=== PATIENT | male | born 1945 | race Caucasian/White ===

== ENCOUNTER 2016-07-08 08:34 | Emergency (ER) | payer MEDICARE, MEDICAID ==
--- NOTE | 2016-07-08 08:55 | ED Physician Chart ---
Chief Complaint/HPI - Patient Information Date Seen:: 07/08/16 Time Seen:: 08:35 Chief Complaint:: rash History of Present Illness:: 71-year-old male from [facility] with acute, constant, moderate to severe, skin rash on the right flank/upper buttocks 3 weeks. Associated shingles outbreak started the rash. Concerned that there may be infection of the healing herpetic rash. Allergies:: Allergies Allergy/AdvReac Type Severity Reaction Status Date / Time No Known Allergies Allergy Verified 07/08/16 08:46 Historian:: Patient Review:: Nurse's Note Reviewed Review of Systems - Review of Systems Other: Complete system review otherwise unremarkable except as noted in history of present illness. Past Medical History - Past Medical History Past Medical History: HTN, Asthma/COPD Family History: None Social History: Smoker, No Alcohol, No Drug Use, Care Facility Surgical History: None Psychiatricy History: Schizophrenia Medication: Reviewed Family Medical History - Family Member Mother Ethnicity: Non- Living Status: Physical Exam - Physical Examination Other:: INITIAL VITAL SIGNS: Reviewed by me GENERAL: Alert and interactive. No acute distress HEAD: Head is normocephalic and atraumatic EYES: EOMI. PERRL. No scleral icterus. No conjunctival injection ENT: Moist mucous membranes. NECK: Supple. No masses. Full range of motion RESPIRATORY: No tachypnea. Clear breath sounds bilaterally. No wheezing, rales, or rhonchi CV: Regular rate and rhythm. No murmurs, rubs, or gallops ABDOMEN: Soft, non-distended, non-tender. No guarding. No rebound. No masses. EXTREMITIES: No deformity. No cyanosis. No edema. SKIN: Right flank area has healing and partially scabbed over herpetic zoster rash. There are some areas with slight open wound. Minimal surrounding erythema. NEUROLOGIC: Alert and oriented. Face is symmetric. Speech is normal. Moves all extremities equally. Motor and sensory distally intact. Labs/Radiology/EKG Results - Lab Results Results: Lab Results 07/08/16 07/08/16 07/08/16 Range/Units 09:00 09:00 09:00 WBC 6.7 (4.8-10.8) Th/cmm RBC 4.26 (3.80-5.80) Mil/cmm Hgb 14.7 (12.6-17.4) gm/dL Hct 42.9 (39.0-49.0) % MCV 100.8 H (80-99) fl MCH 34.5 H (27.0-31.0) pg MCHC Differential 34.3 (28.0-36.0) pg RDW 13.2 (11.5-20.0) % Plt Count 313 (150-400) Th/cmm MPV 6.3 fl Neutrophils % 68.8 (40.0-80.0) % Lymphocytes % 20.9 (20.0-50.0) % Monocytes % 8.4 (2.0-10.0) % Eosinophils % 0.3 (0.0-5.0) % Basophils % 1.6 (0.0-2.0) % PT 9.6 (9.5-11.5) SECONDS INR 0.92 (0.5-1.4) PTT (Actin FS) 29.0 (26.0-38.0) SECONDS Sodium 129 L (136-145) mEq/L Potassium 4.0 (3.5-5.1) mEq/L Chloride 99 (98-107) mEq/L Carbon Dioxide 29.8 (21.0-31.0) mEq/L Anion Gap 4.2 L (7.0-16.0) BUN 15 (7-25) mg/dL Creatinine 0.7 (0.7-1.3) mg/dL Est GFR ( Amer) TNP Est GFR (Non-Af Amer) TNP BUN/Creatinine Ratio 21.4 Glucose 112 H (70-105) mg/dL Whole Bld Lactic Acid (0.60-1.99) mmol/L Calcium 9.6 (8.6-10.3) mg/dL Total Bilirubin 1.0 (0.3-1.0) mg/dL AST 24 (13-39) U/L ALT 16 (7-52) U/L Alkaline Phosphatase 48 (34-104) U/L Total Protein 7.7 (6.0-8.3) gm/dL Albumin 4.0 L (4.2-5.5) gm/dL Globulin 3.7 gm/dL Albumin/Globulin Ratio 1.1 (1.0-1.8) 07/08/16 Range/Units 09:00 WBC (4.8-10.8) Th/cmm RBC (3.80-5.80) Mil/cmm Hgb (12.6-17.4) gm/dL Hct (39.0-49.0) % MCV (80-99) fl MCH (27.0-31.0) pg MCHC Differential (28.0-36.0) pg RDW (11.5-20.0) % Plt Count (150-400) Th/cmm MPV fl Neutrophils % (40.0-80.0) % Lymphocytes % (20.0-50.0) % Monocytes % (2.0-10.0) % Eosinophils % (0.0-5.0) % Basophils % (0.0-2.0) % PT (9.5-11.5) SECONDS INR (0.5-1.4) PTT (Actin FS) (26.0-38.0) SECONDS Sodium (136-145) mEq/L Potassium (3.5-5.1) mEq/L Chloride (98-107) mEq/L Carbon Dioxide (21.0-31.0) mEq/L Anion Gap (7.0-16.0) BUN (7-25) mg/dL Creatinine (0.7-1.3) mg/dL Est GFR ( Amer) Est GFR (Non-Af Amer) BUN/Creatinine Ratio Glucose (70-105) mg/dL Whole Bld Lactic Acid 0.46 L (0.60-1.99) mmol/L Calcium (8.6-10.3) mg/dL Total Bilirubin (0.3-1.0) mg/dL AST (13-39) U/L ALT (7-52) U/L Alkaline Phosphatase (34-104) U/L Total Protein (6.0-8.3) gm/dL Albumin (4.2-5.5) gm/dL Globulin gm/dL Albumin/Globulin Ratio (1.0-1.8) - EKG Interpretations Comments:: 12-lead EKG Interpretation by Natalya Griffin MD: Normal Sinus Rhythm with ventricular rate of 81 beats per minute Normal axis Normal intervals No acute ST or T wave changes. No obvious STEMI Assessment - Assessment General Assessment: SMOKING CESSATION COUNSELING: I spent greater than 3 minutes at the bedside with the patient discussing the benefits of smoking cessation, including decreased risk of heart disease, lung cancer, and emphysema. We also discussed strategies for smoking cessation, including pharmaceutical options. The patient was also encouraged to follow up with the primary care physician for outpatient follow-up. ED Septic Shock - . Is Septic Shock (SBP<90, OR Lactate>4 mmol\L) present?: No Reassessment (Disposition) - Reassessment Reassessment:: Patient's labs are essentially unremarkable showing no indication of underlying cellulitis. There is likely some slight dermatitis of the skin due to the improving herpes zoster of the right flank. We applied Silvadene cream to the rash area. Discussed the case with Dr. Powell who is the primary care physician , who also agrees no indication for admission. He will continue to manage the patient's wound care as an outpatient. Discussed with the patient as well. Follow with Dr. Powlel 1-2 days. Return to ER precautions given. Patient understands and agrees with the plan. Reassessment Condition:: Improved - Diagnosis Diagnosis:: Acute Dermatitis of the right flank due to Herpes zoster rash Tobacco abuse Hypertension - Aftercare/Follow up Instructions Aftercare/Follow-Up Instructions:: Counseled pt regarding lab results/diagnosis & need follow up, Refer to Discharge Instructions - Patient Disposition Discharge/Transfer:: Home Time:: 10:11 Condition at Disposition:: Improved ED Discharge Plan - Patient Disposition Admit/Discharge/Transfer: PT DISCHARGED HOME Condition at Disposition: Improved Instructions: Shingles, [id number], Rash
[2016-07-08 09:09] LABS: % BASOPHILS 1.6 % (0.0-2.0); % EOSINOPHILS 0.3 % (0.0-5.0); % LYMPHOCYTES 20.9 % (20.0-50.0); % MONOCYTES 8.4 % (2.0-10.0); % NEUTROPHILS 68.8 % (40.0-80.0); HEMATOCRIT 42.9 % (39.0-49.0); HEMOGLOBIN 14.7 gm/dL (12.6-17.4); MEAN CELL VOLUME 100.8 fl (80-99); MEAN CORPUSCULAR HEMOGLOBIN 34.5 pg (27.0-31.0); MEAN CORPUSCULAR HGB CONC 34.3 pg (28.0-36.0); MEAN PLATELET VOLUME 6.3 fl; NEUTROPHILE ABSOLUTE 4.6 Th/cmm (1.8-8.0); PLATELET COUNT 313 Th/cmm (150-400); RED BLOOD COUNT 4.26 Mil/cmm (3.80-5.80); RED CELL DISTRIBUTION WIDTH 13.2 % (11.5-20.0); WHITE BLOOD COUNT 6.7 Th/cmm (4.8-10.8)
[2016-07-08 09:20] LABS: INR 0.92 (0.5-1.4); PROTHROMBIN TIME (TEST) 9.6 SECONDS (9.5-11.5)
[2016-07-08 09:25] LABS: ALB/GLOB RATIO 1.1 (1.0-1.8); ALKALINE PHOSPHATASE 48 U/L (34-104); ANION GAP 4.2 (7.0-16.0); BUN - UREA NITROGEN 15 mg/dL (7-25); BUN/CREATININE RATIO 21.4; CALCIUM SERUM 9.6 mg/dL (8.6-10.3); CARBON DIOXIDE 29.8 mEq/L (21.0-31.0); CHLORIDE 99 mEq/L (98-107); CREATININE - SERUM 0.7 mg/dL (0.7-1.3); GLUCOSE 112 mg/dL (70-105); SGOT 24 U/L (13-39); SGPT/ALT 16 U/L (7-52); SODIUM SERUM 129 mEq/L (136-145)
== END 2016-07-08 10:10 ==
LOC: ER 08:34
DX: B02.9 Zoster without complications (principal); I10 Essential (primary) hypertension; J44.9 Chronic obstructive pulmonary disease, unspecified; J45.909 Unspecified asthma, uncomplicated; F17.200 Nicotine dependence, unspecified, uncomplicated; F20.9 Schizophrenia, unspecified
CPT/HCPCS: 36415-UA; 80053-TC; 83605; 85025-TC; 85610-TC; 85730-TC; 93005